=== PATIENT | female | born 1990 | race Hispanic/Latino ===

== ENCOUNTER 2018-08-06 13:31 | Emergency (ER) | payer OTHER ==
[2018-08-06 13:37] VITALS: BMI 22.6
[2018-08-06 13:39] VITALS: RESP 17; TEMP 97.8
[2018-08-06] MEDS ORDERED: Lidocaine 5% Patch TD STA (13:50)
--- NOTE | 2018-08-06 14:01 | ED PDOC ---
HPI: Back Time Seen by Provider: 08/06/18 13:40 Chief Complaint (Nursing): Back Pain Chief Complaint (Provider): back pain History Per: Patient History/Exam Limitations: no limitations Onset/Duration Of Symptoms: Days (2x) Current Symptoms Are (Timing): Still Present Severity: Moderate Additional Complaint(s): 28 year old female with a past medical history of a herniated disc presents to the ED for an evaluation of right sided lower back pain that radiates down her right leg that started yesterday morning. Patient states that she woke up with the pain, that the pain worsens with movement, and is slightly alleviated when laying supine. Patient reports taking advil with no relief, last dose was 3x hours prior to arrival. Patient states that 1x day prior to when the pain began, she ran for 30x minutes, which she does routinely, denies exerting herself more than usual, and reports stretching beforehand. Patient denies having trauma, fe vers, chills, weakness, dysuria, hematuria, incontinence, abdominal pain, or saddle paresthesias. PMD: None provided Past Medical History Reviewed: Historical Data, Nursing Documentation, Vital Signs Vital Signs: Last Vital Signs Temp 97.8 F 08/06/18 13:37 Pulse 62 08/06/18 13:37 Resp 17 08/06/18 13:37 BP 126/79 08/06/18 13:37 Pulse Ox 95 08/06/18 13:37 SHANNAN Report Viewed: Yes Primary Care Provider: Non [facility] Provider, - Medical History PMH: Hypothyroidism Other PMH: lumbar disc herniation - Surgical History Surgical History: Back Surgery (laminectomy in 2005) - Family History Family History: States: No Known Family Hx - Social History Current smoker - smoking cessation education provided: No Alcohol: Social Drugs: Denies - Immunization History Hx Tetanus Toxoid Vaccination: No Hx Influenza Vaccination: No Hx Pneumococcal Vaccination: No - Home Medications Home Medications: Ambulatory Orders Medication Instructions Recorded Cyclobenzaprine [Cyclobenzaprine 10 mg PO Q8 PRN #15 tab 08/06/18 HCl] Lidocaine 5% [Lidoderm] 1 ea TD DAILY PRN #7 patch 08/06/18 Meloxicam [Mobic] 1 - 2 tab PO DAILY PRN #14 tab 08/06/18 - Allergies Allergies/Adverse Reactions: Allergies Allergy/AdvReac Type Severity Reaction Status Date / Time codeine Allergy Intermediate RASH Verified 08/06/18 13:49 Review of Systems ROS Statement: Except As Marked, All Systems Reviewed And Found Negative Constitutional: Negative for: Fever, Chills Gastrointestinal: Negative for: Abdominal Pain Genitourinary Female: Negative for: Dysuria, Incontinence, Hematuria Musculoskeletal: Positive for: Back Pain (right sided lower back pain, radiating down right leg) Neurological: Negative for: Weakness, Numbness, Other (saddle paresthesias) Physical Exam - Reviewed Nursing Documentation Reviewed: Yes Vital Signs Reviewed: Yes - Physical Exam Appears: Positive for: Non-toxic, In Acute Distress (moderate painful distress) Head Exam: Positive for: ATRAUMATIC, NORMOCEPHALIC Skin: Positive for: Normal Color, Warm, Dry Eye Exam: Positive for: Normal appearance Neck: Positive for: Normal, Painless ROM, Supple Cardiovascular/Chest: Positive for: Regular Rate, Rhythm Respiratory: Positive for: Normal Breath Sounds Pulses-Dorsalis Pedis (L): 2+ Pulses-Dorsalis Pedis (R): 2+ Gastrointestinal/Abdominal: Positive for: Normal Exam, Soft. Negative for: Tenderness Back: Positive for: Normal Inspection, Muscle Spasm (right sided paralumbar muscle spasm and tenderness. bilateral lower extremity strength: 5/5. Bilateral upper extremity strength: 5/5. ). Negative for: L CVA Tenderness, R CVA Tenderness, Vertebral Tenderness Neurological/Psych: Positive for: Awake, Alert, Oriented (3x) - ECG O2 Sat by Pulse Oximetry: 95 (RA) Pulse Ox Interpretation: Normal - Progress Re-evaluation Time: 14:34 (Reports pain has stopped. Advised to f/u with PMD for further evaluation but is to return to ED immediately if symptoms worsen. Gait steady, unassisted. Informed of results. States that she is currently on her period.) Condition: Re-examined, Improved Medical Decision Making Medical Decision Makin:40 Initial impression: 28 year old female with back pain Initial plan: * drug screen urinary * udip * lidoderm 1 ea TD * toradol 30 mg IM * valium 10 mg PO * urinalysis * reevaluation ScribeAttestation: Documented byRaegan Zaldivar, acting as a scribe for John Velazquez Provider ScribeAttestation: All medical record entries made by the Scribe were at my direction and personally dictated by me. I have reviewed the chart and agree that the record accurately reflects my personal performance of the history, physical exam, medical decision making, and the department course for this patient. I have also personally directed, reviewed, and agree with the discharge instructions and disposition. Disposition - Clinical Impression Clinical Impression: Sciatica - Patient ED Disposition Is Patient to be Admitted: No - Disposition Referrals: Kurt Starkey [Outside] Disposition: Routine/Home Disposition Time: 14:35 Condition: IMPROVED Additional Instructions: FOLLOW UP WITH BACK SPECIALIST FOR FURTHER EVALUATION RETURN TO ED IMMEDIATELY IF SYMPTOMS WORSEN Prescriptions: Cyclobenzaprine [Cyclobenzaprine HCl] 10 mg PO Q8 PRN #15 tab PRN Reason: Muscle Spasm Lidocaine 5% [Lidoderm] 1 ea TD DAILY PRN #7 patch PRN Reason: Pain Meloxicam [Mobic] 1 - 2 tab PO DAILY PRN #14 tab PRN Reason: Pain Instructions: Sciatica Exercises Forms: [employer] ([place])
[2018-08-06 14:42] LABS: SQUAMOUS EPITHIAL 4 /hpf (0-5); URINE BILIRUBIN NEGATIVE (NEGATIVE); URINE BLOOD MODERATE (NEGATIVE); URINE CLARITY SLIGHTY-CLOUDY (Clear); URINE COLOR YELLOW (YELLOW); URINE GLUCOSE (UA) NEG (NEGATIVE); URINE LEUKOCYTE ESTERASE NEG Leu/uL (Negative); URINE PROTEIN 30 mg/dL (NEGATIVE); URINE UROBILINOGEN 0.2-1.0 mg/dL (0.2-1.0)
[2018-08-06 14:57] LABS: BARBITURATES, UR NEGATIVE (NEGATIVE); BENZODIAZEPINES, UR NEGATIVE (NEGATIVE); OPIATES, UR NEGATIVE (NEGATIVE); PHENCYCLIDINE, UR NEGATIVE (NEGATIVE)
[2018-08-06 16:33] VITALS: BP 119/78; PULSE 60
[2018-08-06 16:34] VITALS: O2SAT 95
== END 2018-08-06 15:00 | disposition home or self-care (01) ==
LOC: H.ER 13:31
DX: M54.30 Sciatica, unspecified side (principal); E03.9 Hypothyroidism, unspecified
CPT/HCPCS: 80324; 80345; 80346; 80349; 80353; 80358; 80361; 81003; 81025; 83992; 96372; 99283; J1885